=== PATIENT | female | born 1965 | race Caucasian/White ===

== ENCOUNTER 2018-05-06 15:32 | Emergency (ER) | payer MEDICAID, OTHER ==
[2018-05-06 16:37] VITALS: RESP 18; TEMP 98.5; O2SAT 99
[2018-05-06] MEDS ORDERED: metroNIDAZOLE IV 500 mg/100 ml 500 MG/100 ML BAG IVPB STA (17:09)
--- NOTE | 2018-05-06 17:40 | ED PDOC ---
Arrival/HPI - General Chief Complaint: Dental Pain Time Seen by Provider: 05/06/18 15:39 Historian: Patient, Spouse - History of Present Illness Narrative History of Present Illness (Text): 05/06/18 17:34 This is a 52 yo F with PMH of DMII and HTN who presents with complaint of severe left upper posterior molar pain. Reports pain began when eating breakfast (toast and fruit, nothing with seeds). Denies feeling crunch of tooth on hard object, denies bleeding or purulence from site, or swell, only constant pain of fluctuating intensity (from mild to severe pain), acutely worse when eating on the left, touching the tooth, and/or when drinking cold liquids. Pain at same site as bridgework approx 8 years prior. Denies fevers, chills, difficultly swallowing, voice change, or hoarseness. PMH: as above PSH: dental work over several years, bridgework ~8 yrs prior, x1 Fam Hx: no relevant family hx Soc Hx: denies tobacco, alcohol, illicits, IVDA. PMD: Dr. Carlos Past Medical History - Infectious Disease Hx of Infectious Diseases: None - Cardiac Hx Hypertension: Yes - Pulmonary Hx Respiratory Disorders: No - Endocrine/Metabolic Hx Diabetes Mellitus Type 2: Yes - Psychiatric Hx Substance Use: No - Surgical History Hx Section: Yes (2) Other/Comment: fibroid - Anesthesia Hx Anesthesia: Yes Hx Anesthesia Reactions: No Family/Social History Family/Social History: Other (no relevant family hx) Smoking Status: Unknown If Ever Smoked Hx Alcohol Use: No Hx Substance Use: No Allergies/Home Meds Allergies/Adverse Reactions: Allergies No Known Allergies Allergy (Verified 02/26/16 11:00) Home Medications: Home Meds Medication Instructions Recorded Confirmed Simvastatin 10 mg PO DAILY 02/26/16 05/06/18 metFORMIN [glucOPHAGE] 500 mg PO DAILY 02/26/16 05/06/18 Aspirin [Aspirin Chewable] 1 tab PO DAILY 05/06/18 05/06/18 Review of Systems - Physician Review All systems were reviewed & negative as marked: Yes (as per HPI) Physical Exam Vital Signs Reviewed: Yes Vital Signs Temp Pulse Resp BP Pulse Ox 05/06/18 16:36 98.5 F 74 18 137/87 99 Temperature: Afebrile Blood Pressure: Normal Pulse: Regular Respiratory Rate: Normal Appearance: Positive for: Well-Appearing, Non-Toxic, Uncomfortable Pain Distress: Other (mild to severe, severe with palpation of tooth) Mental Status: Positive for: Alert and Oriented X 3 - Systems Exam Head: Present: Atraumatic, Normocephalic Pupils: No: Pinpoint Extroacular Muscles: Present: EOMI Conjunctiva: Present: Normal. No: Injected, Icteric Mouth: Present: Moist Mucous Membranes, Normal Lips, Normal Tounge, Other ( scattered dental carries, some discoloration, no obvious deformity at tooth #16 (no cracks, chipping, bleeding, swelling at gums, purulence, erythema) but acutely tender to palpation on all sides). No: Drooling Pharnyx: Present: Normal. No: ERYTHEMA, EXUDATE, TONSILS ENLARGED Nose (External): Present: Atraumatic. No: Abrasion, Laceration Nose (Internal): Present: No Active Bleeding. No: Epistaxis Neck: Present: Normal Range of Motion. No: JVD Respiratory/Chest: No: Respiratory Distress, Accessory Muscle Use, Wheezes Cardiovascular: Present: Regular Rate and Rhythm, Normal S1, S2. No: Murmurs, Irregular Rhythm, Tachycardic, Bradycardic Abdomen: No: Distention, Peritoneal Signs Upper Extremity: Present: Normal Inspection, Normal ROM, NORMAL PULSES. No: Cyanosis, Edema Lower Extremity: Present: Normal Inspection, NORMAL PULSES, Normal ROM. No: Edema, CALF TENDERNESS Neurological: Present: GCS=15, Speech Normal, Motor Func Grossly Intact, Normal Sensory Function Skin: Present: Warm, Dry, Normal Color. No: Rashes Lymphatic: No: Cervical Adenopathy Psychiatric: Present: Alert, Oriented x 3, Normal Insight, Normal Concentration , Normal Affect, Normal Mood Medical Decision Making ED Course and Treatment: 05/06/18 17:43 Ddx: occult fracture of tooth vs dental carries unable to be visualized vs occult abscess Exam not able to elucidate cause of tooth pain, but easily appreciate pain on exam. Shot of toradol for pain given, script for augmentin BID x7 days given, and referral to late-open emergency dental clinic provided, encouraged patient to go there immediately tonight. Instructed patient and to hold onto antibiotic script, and if unable to get dental appointment today, start antibiotics tonight. Otherwise, will defer therapy choice to dental team. Patient and express understanding and agreement with plan. Discharged to home. Patient seen, reviewed, and discussed with attending, Dr. Alonso - Medication Orders Current Medication Orders: Discontinued Medications Ketorolac Tromethamine (Toradol) 30 mg IVP STAT STA Stop: 05/06/18 17:10 Disposition/Present on Arrival - Present on Arrival Any Indicators Present on Arrival: No History of DVT/PE: No History of Uncontrolled Diabetes: No Urinary Catheter: No History of Decub. Ulcer: No History Surgical Site Infection Following: None - Disposition Have Diagnosis and Disposition been Completed?: Yes Diagnosis: Tooth pain Disposition: HOME/ ROUTINE Disposition Time: 17:46 Patient Plan: Discharge Patient Problems: Current Active Problems Problem Status Onset Tooth pain Acute Condition: GOOD Discharge Instructions (ExitCare): Dental Pain (DC) Additional Instructions: You were seen at [facility] for your tooth pain. Unfortunately, our exam did not reveal any clear cause for your pain. We did not observe any obvious sites of swelling, bleeding, or erythema at or around the tender tooth. We have given you a shot of toradol for pain, and a script for antibiotics to take until you can see your dentist. Please consider going to an emergency dental clinic if you can't wait until your dental appointment. A referral for one near the hospital has been provided [facility] Prescriptions: Amoxicillin/Clavulanate [Augmentin 875 MG-125 MG] 1 tab PO BID #14 tab Referrals: Roscoe Hutchison [Other] - Follow up with primary Forms: [facility] [employer] (Congolese)
[2018-05-06 18:16] VITALS: BP 132/90; PULSE 70
== END 2018-05-06 18:15 | disposition home or self-care (01) ==
LOC: ED 15:32
DX: K08.89 Other specified disorders of teeth and supporting structures (principal); E11.9 Type 2 diabetes mellitus without complications; I10 Essential (primary) hypertension
CPT/HCPCS: 96374; 99281; J1885

== ENCOUNTER 2018-06-27 18:17 | Emergency (ER) | payer OTHER ==
[2018-06-27 18:36] VITALS: TEMP 98.6
--- NOTE | 2018-06-27 18:47 | ED PDOC ---
Arrival/HPI <Afshin Shearer - Last Filed: 06/27/18 20:17> - General Historian: Patient <Mohsen Lamas - Last Filed: 06/30/18 16:16> - General Chief Complaint: Lower Extremity Problem/Injury Time Seen by Provider: 06/27/18 18:34 - History of Present Illness Narrative History of Present Illness (Text): 06/27/18 18:39 52 y/o female, pmh including hld/dm, nkda, post menopausal, c/o rt. posterior thigh and calf pain started yesterday after walking with no fall or trauma. Aching pain, aggravated by movement, no numbness or tingling, no skin discoloration, no fever or chills, no cold rt. lower extremity, no chest pain or shortness of breath, no other medical or psychological complaints. (Mohsen Lamas) Past Medical History - Provider Review Nursing Documentation Reviewed: Yes - Infectious Disease Hx of Infectious Diseases: None - Reproductive Menopause: Yes - Cardiac Hx Hypertension: Yes - Pulmonary Hx Respiratory Disorders: No - Endocrine/Metabolic Hx Diabetes Mellitus Type 2: Yes - Psychiatric Hx Substance Use: No - Surgical History Hx Section: Yes (2) Other/Comment: fibroid - Anesthesia Hx Anesthesia: Yes Hx Anesthesia Reactions: No <Mohsen Lamas - Last Filed: 06/30/18 16:16> Family/Social History - Physician Review Nursing Documentation Reviewed: Yes Family/Social History: Unknown Family HX Smoking Status: Unknown If Ever Smoked Hx Alcohol Use: No Hx Substance Use: No <Mohsen Lamas - Last Filed: 06/30/18 16:16> Allergies/Home Meds <Afshin Shearer - Last Filed: 06/27/18 20:17> <Mohsen Lamas - Last Filed: 06/30/18 16:16> Allergies/Adverse Reactions: Allergies No Known Allergies Allergy (Verified 06/27/18 18:36) Home Medications: Home Meds Medication Instructions Recorded Confirmed Simvastatin 10 mg PO DAILY 02/26/16 06/27/18 metFORMIN [glucOPHAGE] 500 mg PO DAILY 02/26/16 06/27/18 Aspirin [Aspirin Chewable] 1 tab PO DAILY 05/06/18 06/27/18 GlipiZIDE [Glucotrol] 5 mg PO DAILY 06/27/18 06/27/18 Review of Systems - Review of Systems Constitutional: absent: Fatigue, Fevers Eyes: absent: Vision Changes ENT: absent: Hearing Changes Respiratory: absent: SOB, Cough Cardiovascular: absent: Chest Pain Gastrointestinal: absent: Abdominal Pain, Diarrhea, Nausea, Vomiting Musculoskeletal: Myalgias. absent: Arthralgias, Back Pain Skin: absent: Rash, Pruritis, Skin Lesions Neurological: absent: Headache, Dizziness Psychiatric: absent: Anxiety, Depression, Suicidal Ideation <Mohsen Lamas Q - Last Filed: 06/30/18 16:16> Physical Exam Vital Signs Reviewed: Yes Temperature: Afebrile Blood Pressure: Normal Pulse: Regular Respiratory Rate: Normal Appearance: Positive for: Well-Appearing, Non-Toxic, Comfortable Pain Distress: Moderate Mental Status: Positive for: Alert and Oriented X 3 - Systems Exam Head: Present: Atraumatic, Normocephalic Pupils: Present: PERRL Extroacular Muscles: Present: EOMI Conjunctiva: Present: Normal Mouth: Present: Moist Mucous Membranes Neck: Present: Normal Range of Motion Respiratory/Chest: Present: Clear to Auscultation, Good Air Exchange. No: Respiratory Distress, Accessory Muscle Use Cardiovascular: Present: Regular Rate and Rhythm, Normal S1, S2. No: Murmurs Abdomen: No: Tenderness, Distention, Peritoneal Signs Back: Present: Normal Inspection Upper Extremity: Present: Normal Inspection. No: Cyanosis, Edema Lower Extremity: Present: Normal Inspection, NORMAL PULSES, Normal ROM, Neurovascularly Intact, Capillary Refill < 2 s, Other (RLE: +ttp on the posterior thigh and calf muscle region, no deformity, FROM without limitation, sensation intact, motor 5/5, +DPPT pulses, capillary refill< 2 seconds, neurovascular intact. ). No: Edema, Tenderness, Swelling, Deformity Neurological: Present: GCS=15, CN II-XII Intact, Speech Normal Skin: Present: Warm, Dry, Normal Color. No: Rashes Psychiatric: Present: Alert, Oriented x 3, Normal Insight, Normal Concentration <Mohsen Lamas Q - Last Filed: 06/30/18 16:16> Vital Signs Temp Pulse Resp BP Pulse Ox 06/27/18 20:24 100 06/27/18 20:13 75 17 130/72 100 06/27/18 18:34 98.6 F 77 18 127/75 99 Medical Decision Making <Afshin Shearer - Last Filed: 06/27/18 20:17> - RAD Interpretation Theology Teacher: Radiologist <Mohsen Lamas - Last Filed: 06/30/18 16:16> ED Course and Treatment: 06/27/18 18:51 -Toradol IM/valium -RLE Venuous Doppler -Observe and reassesss 06/27/18 19:51 -RLE Venuous Doppler: as per preliminary report, no acute DVT' -Pt. feels better, all radiology result discussed with patient. -Discharge home with naproxen, flexeril, cane, heat compression, follow up with your own pmd and orthopedic within 2 days, return to the ER for any new or worsening signs or symptoms. (Mohsen Lamas) - RAD Interpretation Radiology Orders: 06/27/18 18:47 DUPLEX LOWER EXTRM VEIN RIGHT [US] Stat - Medication Orders Current Medication Orders: Discontinued Medications Diazepam (Valium) 5 mg PO ONCE ONE PRN Reason: Protocol Stop: 06/27/18 18:48 Last Admin: 06/27/18 19:16 Dose: 5 mg Ketorolac Tromethamine (Toradol) 60 mg IM STAT STA Stop: 06/27/18 18:48 Last Admin: 06/27/18 19:16 Dose: 60 mg MAR Pain Assessment Document 06/27/18 19:16 EQ (Rec: 06/27/18 19:17 EQ [email or web address] Pain Reassessment Is this a pain reassessment? Yes Sleep Is patient sleeping during reassessment? No Presence of Pain Presence of Pain Yes IM Administration Charges Document 06/27/18 19:16 EQ (Rec: 06/27/18 19:17 EQ [email or web address] Charges for Administration # of IM Administrations 1 - PA / CREATIVE CONSULTANT / Resident Statement / has reviewed & agrees with the documentation as recorded. <Afshin Shearer - Last Filed: 06/27/18 20:17> - PA / CREATIVE CONSULTANT / Resident Statement / has reviewed & agrees with the documentation as recorded. <Mohsen Lamas - Last Filed: 06/30/18 16:16> Disposition/Present on Arrival <Afshin Shearer - Last Filed: 06/27/18 20:17> - Present on Arrival Any Indicators Present on Arrival: No History of DVT/PE: No History of Uncontrolled Diabetes: No Urinary Catheter: No History of Decub. Ulcer: No History Surgical Site Infection Following: None - Disposition Have Diagnosis and Disposition been Completed?: Yes Disposition Time: 20:07 Patient Plan: Discharge <Mohsen Lamas - Last Filed: 06/30/18 16:16> - Disposition Diagnosis: Leg pain Disposition: HOME/ ROUTINE Condition: IMPROVED Additional Instructions: -Discharge home with naproxen, flexeril, cane, heat compression, follow up with your own pmd and orthopedic within 2 days, return to the ER for any new or worsening signs or symptoms. Prescriptions: Cyclobenzaprine [Cyclobenzaprine HCl] 10 mg PO TID PRN #21 tab PRN Reason: Other Naproxen 500 mg PO BID PRN #20 tablet PRN Reason: Other Referrals: Hal Carlos MD [Primary Care Provider] - Follow up with primary Gonzalez Dos Santos DO [Staff Provider] - Follow up with primary Forms: [facility] (Swedish), WORK NOTE
[2018-06-27 20:15] VITALS: BP 130/72; PULSE 75; RESP 17; O2SAT 100
--- NOTE | 2018-06-28 10:53 | US ---
PROCEDURE: Right lower extremity venous US HISTORY: Leg pain and swelling. Evaluate for DVT. PHYSICIAN(S): Dustin Patricia M.D. TECHNIQUE: Duplex sonography and color-flow Doppler with graded compression were used to evaluate the deep venous system of the right lower extremity. FINDINGS: The visualized deep venous system of the right lower extremity is sonographically normal and compressible. Normal waveforms and augmentation are seen. There is no sonographic evidence for deep venous thrombosis in the visualized segments of the right lower extremity. IMPRESSION: 1. No sonographic evidence for deep venous thrombosis in the visualized segments of the right lower extremity.
== END 2018-06-27 20:24 | disposition home or self-care (01) ==
LOC: ED 18:17
DX: M79.604 Pain in right leg (principal); I10 Essential (primary) hypertension; E11.9 Type 2 diabetes mellitus without complications
CPT/HCPCS: 93971; 96372; 99284; J1885

== ENCOUNTER 2018-11-22 21:44 | Emergency (ER) | payer OTHER ==
[2018-11-22 22:22] VITALS: O2SAT 98
[2018-11-22] MEDS ORDERED: Oxycodone/Acetaminophen 5/325 mg Tab PO STA (22:32)
--- NOTE | 2018-11-22 22:33 | ED PDOC ---
Arrival/HPI - General Chief Complaint: Abnormal Skin Integrity Historian: Patient - History of Present Illness Narrative History of Present Illness (Text): 11/22/18 22:30 53 y/o female, pmh including dm, nkda, last tetanus under 2 years ago, c/o rt. hand 3rd digit s/p cut by the garage door while closing it. Pt. sustained laceration on the rt. hand 3rd digit ventral pad region, no difficulty bending or extending, no numbness or tingling, no headache or night sweat, no other medical or psychological complaints. Past Medical History - Provider Review Nursing Documentation Reviewed: Yes - Infectious Disease Hx of Infectious Diseases: None - Cardiac Hx Hypertension: Yes - Pulmonary Hx Respiratory Disorders: No - Endocrine/Metabolic Hx Diabetes Mellitus Type 2: Yes - Psychiatric Hx Substance Use: No - Surgical History Hx Section: Yes (2) Other/Comment: fibroid - Anesthesia Hx Anesthesia: Yes Hx Anesthesia Reactions: No Family/Social History - Physician Review Nursing Documentation Reviewed: Yes Family/Social History: Unknown Family HX Smoking Status: Unknown If Ever Smoked Hx Alcohol Use: No Hx Substance Use: No Allergies/Home Meds Allergies/Adverse Reactions: Allergies No Known Allergies Allergy (Verified 11/22/18 22:10) Home Medications: Home Meds Medication Instructions Recorded Confirmed Simvastatin 10 mg PO DAILY 02/26/16 11/22/18 metFORMIN [glucOPHAGE] 500 mg PO DAILY 02/26/16 11/22/18 Aspirin [Aspirin Chewable] 1 tab PO DAILY 05/06/18 11/22/18 Review of Systems - Review of Systems Constitutional: absent: Fatigue, Fevers Eyes: absent: Vision Changes ENT: absent: Hearing Changes Respiratory: absent: SOB, Cough Cardiovascular: absent: Chest Pain Gastrointestinal: absent: Abdominal Pain, Diarrhea, Nausea, Vomiting Skin: Laceration. absent: Rash, Pruritis, Skin Lesions, Abscess, Ulcer, Cellulitis Neurological: absent: Headache, Dizziness Psychiatric: absent: Anxiety, Depression, Suicidal Ideation Physical Exam Vital Signs Reviewed: Yes Vital Signs Temp Pulse Resp BP Pulse Ox 11/22/18 22:10 97.7 F 79 18 169/103 H 98 Temperature: Afebrile Blood Pressure: Hypertensive Pulse: Regular Respiratory Rate: Normal Appearance: Positive for: Well-Appearing, Non-Toxic, Comfortable Pain Distress: Moderate Mental Status: Positive for: Alert and Oriented X 3 - Systems Exam Head: Present: Atraumatic, Normocephalic Pupils: Present: PERRL Extroacular Muscles: Present: EOMI Conjunctiva: Present: Normal Mouth: Present: Moist Mucous Membranes Neck: Present: Normal Range of Motion Respiratory/Chest: Present: Clear to Auscultation, Good Air Exchange. No: Respiratory Distress, Accessory Muscle Use Cardiovascular: Present: Regular Rate and Rhythm, Normal S1, S2. No: Murmurs Abdomen: No: Tenderness, Distention, Peritoneal Signs Back: Present: Normal Inspection Upper Extremity: Present: Normal Inspection, Other (Rt. hand: visible approx. v- shaped intermediate depth laceration noted approx. 3cm noted perpendicular with no bony tendernes, FROM without limitation and able to flex/extend the DIPJ/PIPJ/MCPJ of the 3rd digit, sensation intact, motor 5/5, normal 2pts. finger discimination, +radial pulse, capillary refill< 2 seconds, neurovascular intact. ). No: Cyanosis, Edema Lower Extremity: Present: Normal Inspection. No: Edema Neurological: Present: GCS=15, CN II-XII Intact, Speech Normal Skin: Present: Warm, Dry, Normal Color. No: Rashes Psychiatric: Present: Alert, Oriented x 3, Normal Insight, Normal Concentration Medical Decision Making ED Course and Treatment: 11/22/18 22:36 -Urine hcg -Xray -Keflex/percocet -Observe and reassess 11/22/18 22:42 PROCEDURE: LACERATION REPAIR Performed by the emergency provider Location: rt. hand 3rd digit Length: 3 cm Description: {"clean wound edges","no foreign bodies"} Distal CMS: Normal. No deficits. Neurovascularly intact. Anesthesia: Lidocaine 1% 2cc with digital block the injured finger Preparation: The wound was cleaned with NS 1000cc and clean with [place]. The area was prepped and draped in the usual sterile fashion. Exploration: The wound was explored and no foreign bodies were found. Procedure: The wound was closed with 5-0 prolene. There was {good / appropriate / adequate / loose} approximation. In total, 5 were used. Post-Procedure: Good closure and hemostasis. The patient tolerated the procedure well and there were no complications. CSM remains intact. Post procedure dressing applied. 11/23/18 00:18 -Xrays show no fracture/dislocation -Discharge home with keflex, finger splint, tylenol for pain as needed, keep the dressing dry and clean for 3 days, sutures need to be removed by day 12, clean the wound twice daily for 9 days, follow up with your own pmd and specialist within 2 days, return to the ER for any new or worsening signs or symptoms. - RAD Interpretation Radiology Orders: soft tissue swelling without acute articular or osseous abnormality. Flare Maker: Radiologist - PA / LEAN MANAGER / Resident Statement MD/DO has reviewed & agrees with the documentation as recorded. Disposition/Present on Arrival - Present on Arrival Any Indicators Present on Arrival: No History of DVT/PE: No History of Uncontrolled Diabetes: No Urinary Catheter: No History of Decub. Ulcer: No History Surgical Site Infection Following: None - Disposition Have Diagnosis and Disposition been Completed?: Yes Diagnosis: Finger laceration, Finger injury Disposition: HOME/ ROUTINE Disposition Time: 00:20 Patient Plan: Discharge Condition: GOOD Additional Instructions: -Discharge home with keflex, finger splint, tylenol for pain as needed, keep the dressing dry and clean for 3 days, sutures need to be removed by day 12, clean the wound twice daily for 9 days, follow up with your own pmd and specialist within 2 days, return to the ER for any new or worsening signs or symptoms. Prescriptions: Acetaminophen [Tylenol 325mg tab] 2 tab PO QID PRN #30 tab PRN Reason: Other Cephalexin [cephalexin] 500 mg PO TID #30 cap Referrals: Greyson Bedoya MD [Staff Provider] - Follow up with primary [facility] [Outside] - Follow up with primary Forms: [facility] (Mohawk), WORK NOTE
[2018-11-23 01:13] VITALS: BP 157/86; PULSE 73; RESP 108; TEMP 98
--- NOTE | 2018-11-23 09:14 | RAD ---
Date of service: 11/22/2018 PROCEDURE: Right middle finger radiographs. HISTORY: Unspecified injury to 3rd digit. COMPARISON: None. TECHNIQUE: AP radiograph of the right hand, as well as spot oblique and lateral images of right middle finger were obtained. FINDINGS: RIGHT MIDDLE FINGER: Right middle finger normal, without fracture of focal lesion. Remainder of the right hand (as seen on the AP view) grossly unremarkable. JOINTS: Normal. SOFT TISSUES: Soft tissue swelling distal tuft region. OTHER FINDINGS: None. IMPRESSION: Soft tissue swelling without acute articular or osseous abnormality. Concordant results with the preliminary interpretation rendered by the emergency department physician procedure.
== END 2018-11-23 00:39 | disposition home or self-care (01) ==
LOC: ED 21:44
DX: S61.212A Laceration without foreign body of right middle finger without damage to nail, initial encounter (principal); W23.0XXA Caught, crushed, jammed, or pinched between moving objects, initial encounter; Y92.89 Other specified places as the place of occurrence of the external cause

== ENCOUNTER 2018-12-04 15:39 | Emergency (ER) | payer OTHER ==
[2018-12-04 15:56] VITALS: TEMP 98
--- NOTE | 2018-12-04 16:41 | ED PDOC ---
Arrival/HPI - General Chief Complaint: Suture/Staple Removal Time Seen by Provider: 12/04/18 15:39 Historian: Patient - History of Present Illness Narrative History of Present Illness (Text): 12/04/18 16:52 53-year-old female presents today for suture removal to the right third finger. pt sustained laceration to right 3rd finger 12 days ago. pt denies numbness, weakness, tingling in the extremity .pt denies fever/chills. pt c/o still of slight pain at laceration site. no other complaints. Past Medical History - Provider Review Nursing Documentation Reviewed: Yes - Travel History Have you recently traveled outside [place] w/in the past 3 mons?: No - Infectious Disease Hx of Infectious Diseases: None - Tetanus Immunization Tetanus Immunization: Up to Date - Cardiac Hx Hypertension: Yes - Pulmonary Hx Respiratory Disorders: No - Endocrine/Metabolic Hx Diabetes Mellitus Type 2: Yes - Psychiatric Hx Substance Use: No - Surgical History Hx Section: Yes (2) Other/Comment: fibroid - Anesthesia Hx Anesthesia: Yes Hx Anesthesia Reactions: No Hx Malignant Hyperthermia: No Family/Social History - Physician Review Nursing Documentation Reviewed: Yes Family/Social History: Unknown Family HX Smoking Status: Unknown If Ever Smoked Hx Alcohol Use: No Hx Substance Use: No Allergies/Home Meds Allergies/Adverse Reactions: Allergies No Known Allergies Allergy (Verified 11/22/18 22:10) Home Medications: Home Meds Medication Instructions Recorded Confirmed Simvastatin 10 mg PO DAILY 02/26/16 11/22/18 metFORMIN [glucOPHAGE] 500 mg PO DAILY 02/26/16 11/22/18 Aspirin [Aspirin Chewable] 1 tab PO DAILY 05/06/18 11/22/18 Review of Systems - Review of Systems Constitutional: absent: Fatigue, Fevers Respiratory: absent: SOB, Cough Cardiovascular: absent: Chest Pain, Palpitations Gastrointestinal: absent: Abdominal Pain, Nausea, Vomiting Musculoskeletal: Arthralgias Skin: Laceration Neurological: absent: Headache Psychiatric: absent: Anxiety Physical Exam Vital Signs Reviewed: Yes Vital Signs Temp Pulse Resp BP Pulse Ox 12/04/18 15:39 98 F 69 18 130/77 100 Temperature: Afebrile Blood Pressure: Normal Pulse: Regular Respiratory Rate: Normal Appearance: Positive for: Well-Appearing, Non-Toxic, Comfortable Pain Distress: None Mental Status: Positive for: Alert and Oriented X 3 - Systems Exam Head: Present: Atraumatic Neck: Present: Normal Range of Motion Respiratory/Chest: Present: Clear to Auscultation, Good Air Exchange. No: Respiratory Distress, Accessory Muscle Use Cardiovascular: Present: Regular Rate and Rhythm, Normal S1, S2. No: Murmurs Upper Extremity: Present: Normal ROM, NORMAL PULSES, Neurovascularly Intact, Capillary Refill < 2s, Other (right hand 3rd finger; there is a laceration to the volar aspect of the 3rd digit at the DIP with [address]; no edema, no erythema; full rom of finger. sensation and distal pulses intact. ). No: Tenderness, Swelling, Erythema Skin: Present: Warm, Dry Psychiatric: Present: Alert, Oriented x 3 Medical Decision Making ED Course and Treatment: Patient is nontoxic well-appearing in no distress. Vital signs are stable. Suture removal: 5 sutures removed Wound healing well without signs of infection I advised the patient to keep the wound clean and dry apply bacitracin twice daily and return if symptoms worsen persist or if new symptoms develop Patient verbalizes understanding of discharge instructions and need for immediate followup. all aspects of this case were discussed the attending of record. Impression: Wound check, suture removal Keep the wound clean and dry Apply bacitracin twice daily Follow up with primary care physician within the next 2 days Follow-up with a hand specialist within the next 2 days Return immediately if symptoms worsen persist or if new symptoms develop Disposition/Present on Arrival - Present on Arrival Any Indicators Present on Arrival: No History of DVT/PE: No History of Uncontrolled Diabetes: No Urinary Catheter: No History of Decub. Ulcer: No History Surgical Site Infection Following: None - Disposition Have Diagnosis and Disposition been Completed?: Yes Diagnosis: Visit for suture removal Disposition: HOME/ ROUTINE Disposition Time: 16:35 Patient Plan: Discharge Condition: GOOD Discharge Instructions (ExitCare): Stitches Removal Additional Instructions: Keep the wound clean and dry Apply bacitracin twice daily Follow up with primary care physician within the next 2 days Follow-up with a hand specialist within the next 2 days Return immediately if symptoms worsen persist or if new symptoms develop Referrals: Hal Carlos MD [Primary Care Provider] - Follow up with primary Edith Guardado MD [Staff Provider] - Follow up with primary Greyson Bedoya MD [Staff Provider] - Follow up with primary Forms: [employer] (Yemeni), WORK NOTE
[2018-12-04 17:14] VITALS: BP 131/78; PULSE 72; RESP 16; O2SAT 99
== END 2018-12-04 17:14 | disposition home or self-care (01) ==
LOC: ED 15:39
DX: Z48.02 Encounter for removal of sutures (principal)

== ENCOUNTER 2019-01-24 15:11 | Emergency (ER) | payer OTHER | END 2019-01-24 17:03 | disposition home or self-care (01) | LOC: ED 15:11 ==

== ENCOUNTER 2019-01-24 23:12 | Emergency (ER) | payer OTHER ==
[2019-01-24 23:20] VITALS: RESP 18; TEMP 97.9
[2019-01-24 23:22] VITALS: BMI 27.4
[2019-01-24] MEDS ORDERED: DiphenhydrAMINE 50 mg/ml Inj IM STA (23:27)
--- NOTE | 2019-01-25 00:25 | ED PDOC ---
Arrival/HPI - General Chief Complaint: Allergic Reaction Time Seen by Provider: 01/24/19 23:23 Historian: Patient - History of Present Illness Narrative History of Present Illness (Text): 01/25/19 00:15 53 year old female, with past medical history of hypertension, hyperlipidemia and diabetes, presents to the emergency department with rash to the arms, legs, and abdomen. Patient was seen in the ER earlier today and diagnosed with urticaria. Patient was treated and released. 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 Patient states the symptoms returned again tonight. Patient denies any associated shortness of breath, difficulty swallowing, or chest pain. Patient also denies any nausea, vomiting, diarrhea, or any other complaints. PMD: Dr. Carlos Time/Duration: Prior to Arrival Symptom Onset: Gradual Symptom Course: Unchanged, Intermittent Activities at Onset: Light Context: Home Past Medical History - Provider Review Nursing Documentation Reviewed: Yes - Infectious Disease Hx of Infectious Diseases: None - Tetanus Immunization Tetanus Immunization: Up to Date - Cardiac Hx Cardiac Disorders: Yes Hx Hypertension: Yes - Pulmonary Hx Respiratory Disorders: No - Neurological Hx Neurological Disorder: No - HEENT Hx HEENT Disorder: No - Renal Hx Renal Disorder: No - Endocrine/Metabolic Hx Endocrine Disorders: Yes Hx Diabetes Mellitus Type 2: Yes - Hematological/Oncological Hx Blood Disorders: No - Integumentary Hx Dermatological Disorder: No - Musculoskeletal/Rheumatological Hx Musculoskeletal Disorders: No - Gastrointestinal Hx Gastrointestinal Disorders: No - Genitourinary/Gynecological Hx Genitourinary Disorders: No - Psychiatric Hx Psychophysiologic Disorder: No Hx Substance Use: No - Surgical History Hx Section: Yes (2) Other/Comment: fibroid - Anesthesia Hx Anesthesia: Yes Hx Anesthesia Reactions: No Hx Malignant Hyperthermia: No Family/Social History - Physician Review Nursing Documentation Reviewed: Yes Family/Social History: No Known Family HX Smoking Status: Unknown If Ever Smoked Hx Alcohol Use: No Hx Substance Use: No Allergies/Home Meds Allergies/Adverse Reactions: Allergies No Known Allergies Allergy (Verified 01/24/19 15:31) Home Medications: Home Meds Medication Instructions Recorded Confirmed Simvastatin 10 mg PO DAILY 02/26/16 01/24/19 metFORMIN [glucOPHAGE] 500 mg PO DAILY 02/26/16 01/24/19 Aspirin [Aspirin Chewable] 1 tab PO DAILY 05/06/18 01/24/19 Ergocalciferol (Vitamin D2) 1.25 mg PO DAILY 01/24/19 01/24/19 [Vitamin D2] Glimepiride [Amaryl] 1 mg PO DAILY 01/24/19 01/24/19 Hydroxyzine Pamoate [Vistaril] 25 mg PO PRN PRN 01/24/19 01/24/19 Lisinopril [Zestril] 5 mg PO DAILY 01/24/19 01/24/19 Multivit,Tx with Iron,Minerals 1 tab PO DAILY 01/24/19 01/24/19 [Therems-H] Review of Systems - Physician Review All systems were reviewed & negative as marked: Yes - Review of Systems Constitutional: absent: Fevers, Night Sweats Respiratory: absent: SOB Cardiovascular: absent: Chest Pain Gastrointestinal: absent: Diarrhea, Nausea, Vomiting Skin: Rash Physical Exam Vital Signs Reviewed: Yes Vital Signs Temp Pulse Resp BP Pulse Ox 01/24/19 23:19 97.9 F 87 18 172/79 H 100 Temperature: Afebrile Blood Pressure: Hypertensive Pulse: Regular Respiratory Rate: Normal Appearance: Positive for: Well-Appearing, Non-Toxic, Comfortable Pain Distress: None Mental Status: Positive for: Alert and Oriented X 3 - Systems Exam Head: Present: Atraumatic, Normocephalic Pupils: Present: PERRL Extroacular Muscles: Present: EOMI Conjunctiva: Present: Normal Mouth: Present: Moist Mucous Membranes Pharnyx: Present: Normal Neck: Present: Normal Range of Motion Respiratory/Chest: Present: Clear to Auscultation, Good Air Exchange. No: Respiratory Distress, Accessory Muscle Use Cardiovascular: Present: Regular Rate and Rhythm, Normal S1, S2. No: Murmurs Abdomen: No: Tenderness, Distention, Peritoneal Signs Back: Present: Normal Inspection Upper Extremity: Present: Normal Inspection. No: Cyanosis, Edema Lower Extremity: Present: Normal Inspection. No: Edema Neurological: Present: GCS=15, CN II-XII Intact, Speech Normal Skin: Present: Warm, Dry, Rashes (Few scattered papular urticaria to the arms legs and upper chest), Normal Color Psychiatric: Present: Alert, Oriented x 3, Normal Insight, Normal Concentration Medical Decision Making ED Course and Treatment: 01/25/19 00:33 Impression: 53 year old female presents with urticaria Plan: -- Benadryl -- Prednisone -- Reassess and disposition Prior Visits: Notes and results from previous visits were reviewed. Progress Notes: - Medication Orders Current Medication Orders: Discontinued Medications Diphenhydramine HCl (Benadryl) 50 mg IM ONCE STA Stop: 01/24/19 23:28 Last Admin: 01/24/19 23:38 Dose: 50 mg IM Administration Charges Document 01/24/19 23:38 CNR (Rec: 01/24/19 23:38 CNR [id number]) Injection Site MAR Injection Site Left Deltoid Charges for Administration # of IM Administrations 1 Prednisone (Prednisone Tab) 60 mg PO ONCE STA Stop: 01/24/19 23:28 Last Admin: 01/24/19 23:38 Dose: 60 mg - Scribe Statement The provider has reviewed the documentation as recorded by the Garett Russell Provider Scribe Attestation: All medical record entries made by the Scribe were at my direction and personally dictated by me. I have reviewed the chart and agree that the record accurately reflects my personal performance of the history, physical exam, medical decision making, and the department course for this patient. I have also personally directed, reviewed, and agree with the discharge instructions and disposition. Disposition/Present on Arrival - Present on Arrival Any Indicators Present on Arrival: No History of DVT/PE: No History of Uncontrolled Diabetes: No Urinary Catheter: No History of Decub. Ulcer: No History Surgical Site Infection Following: None - Disposition Have Diagnosis and Disposition been Completed?: Yes Diagnosis: Allergic reaction, Urticaria Disposition: HOME/ ROUTINE Disposition Time: 01:45 Patient Plan: Discharge Condition: GOOD Discharge Instructions (ExitCare): Vannesa (VON) Additional Instructions: Take medication as prescribed/follow up with your doctor as scheduled Prescriptions: DiphenhydrAMINE [Benadryl] 50 mg PO Q6 PRN #24 cap PRN Reason: Itching / Pruritus Famotidine [Pepcid] 20 mg PO BID PRN #20 tab PRN Reason: Rash predniSONE [Prednisone] 60 mg PO DAILY #15 tab Referrals: Hal Carlos MD [Primary Care Provider] - Follow up with primary Forms: [employer] (Yoruba)
[2019-01-25 02:00] VITALS: BP 146/74; PULSE 76; O2SAT 98
== END 2019-01-25 01:54 | disposition home or self-care (01) ==
LOC: ED 23:12
DX: T78.40XA Allergy, unspecified, initial encounter (principal); X58.XXXA Exposure to other specified factors, initial encounter; L50.9 Urticaria, unspecified; E11.9 Type 2 diabetes mellitus without complications; E78.5 Hyperlipidemia, unspecified; I10 Essential (primary) hypertension
CPT/HCPCS: 96372; 99283; J1200